=== PATIENT | male | born 1950 | race Caucasian/White ===

== ENCOUNTER → 2024-01-10 | Outpatient (CLI) | payer MEDICARE, BC ==
[2005-07-30 12:35] VITALS: TEMP 97
[~2024-01-10] MED LIST: Iohexol 300 - 10 ML VIAL IV ONE; Triamcinolone 40 MG/ML 1 ML VIAL IJ ONE
== END ==
LOC: COL.RAD 07:27
DX: M25.552 Pain in left hip (principal)
CPT/HCPCS: J0665; J3301; Q9967